=== PATIENT | female | born 1965 | race Caucasian/White ===

== ENCOUNTER → 2020-02-25 | Outpatient (CLI) | payer OTHER ==
--- NOTE | 2020-02-25 09:29 | XR ---
Right RIBS HISTORY: Trauma and pain 4 views of the right ribs Correlation to prior exam 12/27/2010 Bone mineralization is normal. There is no evident displaced rib fracture. Surgical clips are present in the right upper quadrant. Degenerative disc changes, spinal curvature noted in the visualized spi ne. No evident pneumothorax, lung contusion, or pleural effusion. IMPRESSION: No acute abnormality. Bone scan could be performed if occult fracture is suspected clinic ally.
== END | disposition home or self-care (01) ==
LOC: RADXRMAIN 07:19
PROVIDERS: ATTEND Family Medicine
DX: S23.41XA Sprain of ribs, initial encounter (principal)